=== PATIENT | male | born 1950 | race Caucasian/White ===

== ENCOUNTER 2017-08-13 11:57 | Emergency (ER) | payer OTHER ==
[2017-08-13 11:59] VITALS: BP 120/73; PULSE 98; RESP 18; TEMP 98.4; O2SAT 98
--- NOTE | 2017-08-13 15:16 | PD ---
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 67-year-old male, who is deaf, presents to the emergency Department with complaint of cough, sore throat, body aches, fever, decreased appetite, chills 6 days. Reports MAXIMUM TEMPERATURE of 101.6 last night. Has been drinking fluids and tolerating well without nausea or vomiting. Reports diarrhea. Denies abdominal pain. No known sick contacts. No known aggravating or relieving factors. Has taken ibuprofen for symptom management. Symptoms are moderate in severity. Primary care provider is a oliverio Sosa. Allergies penicillin. Denies significant past medical history. Has no other medical complaints. No other modifying factors or associated signs and symptoms. PFSH Past Medical History Medical History: Denies Significant Hx Diminished Hearing: Yes (PT IS A DEAF MUTE) Past Surgical History Surgical History: No Previous Surgery Social History Alcohol Use: No Tobacco Use: No Substance Use: No Allergies-Medications (Allergen,Severity, Reaction): Coded Allergies: penicillin G (Unverified Allergy, Severe, Rash, 03/02/17) Reported Meds & Prescriptions Reported Meds & Active Scripts Active No Active Prescriptions or Reported Medications Review of Systems Except as stated in HPI: all other systems reviewed are Neg Physical Exam Narrative GENERAL: Well-nourished, well-developed male patient, in no acute distress; afebrile, nontoxic-appearing SKIN: Warm and dry. No rash. HEAD: Atraumatic. Normocephalic. EYES: Pupils equal and round. No scleral icterus. No injection or drainage. ENT: Mucosa pink and moist. No erythema or exudates. No uvular edema. No uvular , palatal, or tonsillar deviation. Airway patent. EARS: Bilateral pinnae and external canals appear within normal limits. Bilateral tympanic membranes without erythema, dullness or perforation. NECK: Trachea midline. No lymphadenopathy. CARDIOVASCULAR: Regular rate and rhythm. No murmur appreciated. RESPIRATORY: No accessory muscle use. Diffuse wheezing and rhonchi throughout. Breath sounds equal bilaterally. No retractions or tachypnea. GASTROINTESTINAL: Abdomen soft, non-tender, nondistended. Hepatic and splenic margins not palpable. Bowel sounds are active 4 quadrants. MUSCULOSKELETAL: No obvious deformities. No clubbing. No cyanosis. No edema. NEUROLOGICAL: Awake and alert. Oriented 3. No obvious cranial nerve deficits. Motor grossly within normal limits. Normal speech. Moves all extremities. 5/5 strength to all extremities. PSYCHIATRIC: Appropriate mood and affect; insight and judgment normal. Data Data Last Documented VS Vital Signs Date Time Temp Pulse Resp B/P (MAP) Pulse Ox O2 Delivery O2 Flow Rate FiO2 08/13/17 15:05 Room Air 08/13/17 11:59 98.4 98 18 120/73 (89) 98 Orders Orders Influenzae A/B Antigen (08/13/17 14:41) Chest, Single Ap (08/13/17 15:09) Prednisone (Deltasone) (08/13/17 15:30) Albuterol-Ipratropium Neb (Duoneb Neb) (08/13/17 15:30) MDM Medical Decision Making Medical Screen Exam Complete: Yes Emergency Medical Condition: Yes Medical Record Reviewed: Yes Differential Diagnosis Influenza, bronchitis, pneumonia Narrative Course 67-year-old male with cough/cold/flu symptoms. Patient is afebrile and nontoxic -appearing. Patient has wheezing throughout on auscultation of the lungs. He is in no acute distress. No retractions or tachypnea. Oxygen saturation is 98 % on room air. Reports shortness of breath. Denies chest pain. Influenza, chest x-ray, Deltasone, DuoNeb 3 ordered. 1705: Influenza B+. Chest x-ray concludes: Chest X-Ray 08/13/17 1509 Signed Impressions: Service Date/Time: Sunday, August 13, 2017 15:37 - CONCLUSION: Platelike infiltrate in the left lung base suggestive of atelectasis. Osvaldo Jo MD On reexamination the patient's lung sounds are clear and equal throughout and without wheezing. Patient denies shortness of breath. Says he feels better and is comfortable going home discussed viral illness and symptom management. Patient provided a copy of his x-ray report. Azithromycin, Ventolin inhaler, Deltasone, ibuprofen, Tamiflu prescribed for home. Instructed patient to follow up with primary care provider. Patient verbalizes understanding and agreement with treatment plan. Patient is medically cleared and stable for discharge. Discussed reasons to return to the emergency department. Patient agrees with treatment plan. The patients vital signs are stable and the patient is stable for outpatient follow-up and treatment. Patient discharged home, stable and in no acute distress. Diagnosis Primary Impression: Influenza B Additional Impression: Bronchitis Referrals: [facility] Primary Care Physician Patient Instructions: Acute Bronchitis (ED), General Instructions, Influenza ( ED) Additional Instructions: Please provide the patient a copy of his x-ray report Ibuprofen or Tylenol as directed and as needed for fevers/pain; may alternate ibuprofen and Tylenol every 3 hours as needed to minimize fever Use Albuterol inhaler as prescribed Take oral steroids as prescribed and complete full course [id number] decongestants or antihistamines as directed and as needed for symptom management Drink plenty of fluids to prevent dehydration Use hot air humidifier to decrease cough exacerbation Turn off ceiling fans and sleep with head of bed elevated Avoid triggers such as second hand smoke, dust, known allergens Follow-up with your primary care provider in 1-2 days Return to the emergency department immediately with worsening of symptoms Med/Other Pt SpecificInfo: Prescription(s) given Scripts Oseltamivir (Tamiflu) 75 Mg Cap 75 MG PO BID for Mgmt Viral Infection for 5 Days, #10 CAP 0 Refills Prov: Tia Jacobson 08/13/17 Ibuprofen (Ibuprofen) 800 Mg Tab 800 MG PO Q8H Y for PAIN SCALE 1 TO 10, #30 TAB 0 Refills Prov: Tia Jacobson 08/13/17 Azithromycin (Azithromycin) 500 Mg Tab 500 MG PO DAILY for Infection, #5 TAB 0 Refills Prov: Tia Jacobson 08/13/17 Prednisone (Deltasone) 20 Mg Tab 40 MG PO DAILY for 4 Days, #8 TAB 0 Refills start 08/14/2017 Prov: Tia Jacobson 08/13/17 Albuterol 18 GM Inh (Ventolin Hfa 18 GM Inh) 90 Mcg/Act Aer 2 PUFF INH Q4-6H Y for SOB/WHEEZING, #1 INHALER 0 Refills Prov: Tia Jacobson 08/13/17 Disposition: 01 DISCHARGE HOME Condition: Stable Tia Jacobson Aug 13, 2017 15:16
[2017-08-13] MEDS ORDERED: predniSONE 20 MG TAB PO ONE (15:30)
[2017-08-13] MEDS: RESP: ALBUTEROL 2.5 MG/IPRATROPIUM 0.5 MG NEB (SCH) INH ×2 (15:34→15:35)
--- NOTE | 2017-08-13 16:01 | RADRPT ---
EXAM DATE/TIME: 08/13/2017 15:37 [facility] COMPARISON: No previous studies available for comparison. INDICATIONS : Short of breath, flu like symptoms MEDICAL HISTORY : None. SURGICAL HISTORY : None. ENCOUNTER: Initial ACUITY: 1 day PAIN SCORE: Non-responsive. LOCATION: Bilateral chest FINDINGS: A single view of the chest demonstrates a platelike infiltrate in the left lung base. Otherwise, the lungs are clear and well-aerated. There are no pleural effusions or pulmonary edema. The cardiomedias tinal contours are unremarkable. Osseous structures are intact. There appears to be a small hiatal h ernia the GE junction. CONCLUSION: Platelike infiltrate in the left lung base suggestive of atelectasis. Osvaldo Jo MD on August 13, 2017 at 15:57 Board Certified Radiologist. This report was verified electronically.
[2017-08-13] MEDS ORDERED: VENTAER INH (17:13)
[2017-08-13] MEDS ORDERED: PRED-503 PO (17:13)
[2017-08-13] MEDS ORDERED: IBUP1TAB7 PO (17:13)
[2017-08-13] MEDS ORDERED: AZIT500T2 PO (17:13)
[2017-08-13] MEDS ORDERED: OSEL75 PO (17:13)
[2017-08-13 18:03] VITALS: BP 117/68
== END 2017-08-13 18:04 | disposition home or self-care (01) ==
LOC: NEPD 11:57
DX: J10.1 Influenza due to other identified influenza virus with other respiratory manifestations (principal); J40 Bronchitis, not specified as acute or chronic; R19.7 Diarrhea, unspecified; H91.3 Deaf nonspeaking, not elsewhere classified; Z88.0 Allergy status to penicillin
CPT/HCPCS: 71045; 87804; 94664; 99284; J7512